=== PATIENT | male | born 1955 | race Caucasian/White ===

== ENCOUNTER 2022-03-26 10:12 | Outpatient (CLI) | payer OTHER, SELFPAY ==
[2022-03-26 19:10] LABS: Hemoglobin A1C 8.4 % (<5.7)
== END 2022-03-26 10:13 | disposition home or self-care (01) ==
LOC: ANHGOSHLAB 10:14
PROVIDERS: PCP Family Medicine; Visit Provider Family Medicine
DX: E11.9 Type 2 diabetes mellitus without complications (principal)
CPT/HCPCS: 36415; 83036

== ENCOUNTER → 2022-03-26 10:26 | Outpatient (CLI) | payer OTHER, SELFPAY ==
--- NOTE | ~2022-03-26 | XR_ITS ---
EXAMINATION: XR knee LT min 4V DATE: 03/26/2022 10:44 INDICATION: Left knee pain TECHNIQUE: Five views of the left knee were obtained. COMPARISON: None. FINDINGS: Alignment is normal. No fracture or osteochondral lesion. There is tricompartmental osteoar thritis, severe in the medial and patellofemoral compartments. No joint effusion/synovitis. Soft tis sues are unremarkable. IMPRESSION: 1. Tricompartmental osteoarthritis. Reviewed, dictated and finalized at location A.
== END ==
PROVIDERS: PCP Family Medicine; Visit Provider Family Medicine
DX: M17.12 Unilateral primary osteoarthritis, left knee (principal)
CPT/HCPCS: 73564

== ENCOUNTER 2022-08-18 07:59 | Outpatient (CLI) | payer OTHER, SELFPAY ==
[2022-08-18 18:34] LABS: Alanine Aminotransferase 35 U/L (6-50); Albumin Level 3.9 g/dL (3.5-5.1); Alkaline Phosphatase 79 U/L (38-126); Anion Gap 7 mmol/L (8-16); Aspartate Amino Transferase 44 U/L (17-59); Bilirubin,Total 0.5 mg/dL (0.2-1.3); Blood Urea Nitrogen 15 mg/dL (9-20); Calcium 7.8 mg/dL (8.4-10.2); Carbon Dioxide 27 mmol/L (22-30); Chloride 105 mmol/L (98-107); Cholesterol 88 mg/dL (0-200); Estimated Glomerular Filt Rate > 60; Glucose 56 mg/dL (65-110); HDL Direct 40 mg/dL; Sodium 139 mmol/L (137-145); Triglycerides 102 mg/dL (<150)
[2022-08-18 18:40] LABS: Prostate Specific Antigen 0.3 ng/mL (< OR = 4.0)
[2022-08-18 19:35] LABS: Creatinine Urine 108.8 mg/dL
[2022-08-18 19:41] LABS: MALB Creatinine Ratio 7.6 mg/g (0-30); Microalbumin Urine Random 8.3 mg/L (0-16.7)
[2022-08-18 20:06] LABS: LDL Cholesterol Direct < 30 mg/dL
[2022-08-18 20:13] LABS: Hemoglobin A1C 6.4 % (<5.7)
== END 2022-08-18 08:00 | disposition home or self-care (01) ==
LOC: ANHGOSHLAB 08:01
PROVIDERS: PCP Family Medicine; Visit Provider Nurse Practitioner
DX: E78.5 Hyperlipidemia, unspecified (principal); Z12.5 Encounter for screening for malignant neoplasm of prostate; E11.9 Type 2 diabetes mellitus without complications; Z79.4 Long term (current) use of insulin
CPT/HCPCS: 36415; 80053; 80061; 82043; 83036; 84153; G0103

== ENCOUNTER 2022-11-03 08:06 | Outpatient (CLI) | payer OTHER, SELFPAY ==
[2022-11-03 19:28] LABS: Hemoglobin A1C 6.1 % (<5.7)
[2022-11-03 20:06] LABS: Alanine Aminotransferase 34 U/L (6-50); Albumin Level 3.7 g/dL (3.5-5.1); Alkaline Phosphatase 79 U/L (38-126); Anion Gap 6 mmol/L (8-16); Aspartate Amino Transferase 37 U/L (17-59); Bilirubin,Total 0.4 mg/dL (0.2-1.3); Blood Urea Nitrogen 13 mg/dL (9-20); Calcium 8.1 mg/dL (8.4-10.2); Carbon Dioxide 25 mmol/L (22-30); Chloride 105 mmol/L (98-107); Cholesterol 87 mg/dL (0-200); Estimated Glomerular Filt Rate > 60; Glucose 96 mg/dL (65-110); HDL Direct 35 mg/dL; Potassium 4.2 mmol/L (3.4-5.0); Sodium 136 mmol/L (137-145); Triglycerides 107 mg/dL (<150)
[2022-11-03 20:17] LABS: LDL Cholesterol Direct 33 mg/dL
== END 2022-11-03 08:07 | disposition home or self-care (01) ==
LOC: ANHGOSHLAB 08:08
PROVIDERS: PCP Family Medicine; Visit Provider Nurse Practitioner
DX: E11.9 Type 2 diabetes mellitus without complications (principal); Z79.4 Long term (current) use of insulin; E78.5 Hyperlipidemia, unspecified
CPT/HCPCS: 36415; 80053; 80061; 83036

== ENCOUNTER 2023-02-11 02:39 | Day surgery (SDC) | payer OTHER, SELFPAY ==
[2023-02-02 08:45] VITALS: BMI 46.9
--- NOTE | 2023-02-02 09:16 | PC.NURSE ---
pt scheduled for colonoscopy february 11, 2023. he takes semaglutide, instructed pt to hold his next dose scheduled for february 06. pt voiced understanding.
[2023-02-11 06:41] VITALS: BP 149/70; PULSE 72; RESP 18; TEMP 35.9; O2SAT 99
[2023-02-11 06:41] LABS: Glucose Point of Care 74 mg/dl (65-105)
[2023-02-11] MEDS: LACTATED RINGERS 1,000 ML 150 ML IV CONT (06:57)
--- NOTE | 2023-02-11 07:32 | WPDANESEPPF ---
Anes - Initial Pre Proc Eval Procedure: Operation Date: 02/11/23 08:00 Proposed Procedures p Colonoscopy - Cheko Martin MD Date/Time: 02/11/23 07:32 Surgeon: Cheko Martin MD Pre Op Diagnosis: hx of colon polyps Patient Data Age: 67 Gender: M Height: 1.91 m Weight: 163.6 kg Last Vital Signs Temp 96.7 F L 02/11/23 06:41 Pulse 72 02/11/23 06:41 Resp 18 02/11/23 06:41 BP 149/70 H 02/11/23 06:41 Pulse Ox 99 02/11/23 06:41 O2 Del Method Room Air 02/11/23 06:41 Allergies Allergy/AdvReac Type Severity Reaction Status Date / Time No Known Allergies Allergy Verified 02/11/23 06:40 Home Medications Medication Instructions Recorded Confirmed Type aspirin 325 mg tablet 325 mg PO DAILY 11/11/20 02/02/23 History pen needle, diabetic 29 gauge x #500 ea 03/26/22 12/06/22 Rx 1/2 (BD Ultra-Fine Original Pen Needle) insulin lispro 100 unit/mL 40 unit (0.4 mL) subcut TID #105 04/08/22 02/02/23 Rx subcutaneous pen (Humalog KwikPen syringes (U-100) Insulin) insulin glargine 100 unit/mL (3 60 unit (0.6 mL) subcut BID #35 08/31/22 02/02/23 Rx mL) subcutaneous pen (Lantus syringes Solostar U-100 Insulin) semaglutide 1 mg/dose (4 mg/3 mL) 1 mg (0.75 mL) subcut WEEKLY 90 11/29/22 02/02/23 Rx subcutaneous pen injector days #9.75 mL atorvastatin 80 mg tablet 80 mg PO DAILY #90 tabs 12/06/22 02/02/23 Rx empagliflozin 25 mg tablet 25 mg PO DAILY #90 tabs 12/06/22 02/02/23 Rx lisinopril 40 mg tablet 40 mg PO DAILY #90 tabs 12/06/22 02/02/23 Rx metformin 1,000 mg tablet 1,000 mg PO BID #180 tabs 12/06/22 02/02/23 Rx metoprolol succinate 100 mg 100 mg PO DAILY #90 tabs 12/06/22 02/11/23 Rx tablet,extended release 24 hr pioglitazone 15 mg tablet 15 mg PO DAILY #90 tabs 12/06/22 02/02/23 Rx sodium,potassium,mag sulfates 17.5 See Rx Instructions PO .COMPLEX 01/10/23 Rx gram-3.13 gram-1.6 gram oral soln #354 mL (Suprep Bowel Prep Kit) Laboratory Tests 02/11/23 06:38 POC Capillary Glucose 74 mg/dl (65-105) Patient hx anesthesia problems: none Family hx anesthesia problems: none Results Review: All pre-operative results and documents have been reviewed as part of the pre-operative evaluation. [facility] Past Medical History Medical History Type 2 diabetes mellitus Family History Family History Father Diabetes mellitus Hypertension Alzheimer disease Mother Hypertension Social History Social History Smoking status: Never smoker Alcohol intake: current Alcohol use details: occasionally Substance use: never Substance use type: does not use Lack of Transportation: No Lack of Food: Never True Current Housing: I Have Housing Concerned About Future Housing: No Difficulty Paying Gas/Electric Bills: No Difficulty Paying for Meds: No Currently Unemployed: No Education: Decline to Answer Difficulty w/ Childcare or Family Care: No Living arrangements: with family Occupation/Education: occupation Additional occupation/education comments: Freight Conductor at [employer] Gender identity (if verbalized by the patient): Male Sexual Orientation (if Verbalized by the Patient): Straight or Heterosexual Spiritual care concerns: No Anes - Eval Final PreProcedure Day of Procedure 02/11/23 07:32 Patient weight: morbidly obese Heart: regular rate and rhythm Lungs: clear to auscultation Airway: Mallampati scale Neurological: alert and oriented Last oral intake: >/= 8 hours ASA classification: III Emergent: no Anesthetic plan: proceed Anesthesia type and monitoring: general GIVS and standard monitoring Results Review: All pre-operative results and documents have been reviewed as part of the pre-operative evaluation. Informed Consent: The patient's anestheti
--- NOTE | 2023-02-11 08:00 | PM.HPGS ---
History of Present Illness History of Present Illness Consent: Risks, benefits, and alternatives have been discussed and questions answered. Patient agrees to proceed with procedure. Chief complaint: hx of colon polyps Narrative: Shady Cerna is a 67 year old male Presents for screening colonoscopy. Patient's current weight appetite and bowel movements are normal. Patient denies abdominal pain. He has had no bleeding. Patient has had 2 previous colonoscopies. Colon polyps were identified in [place]. Patient presents today for screening exam. Past medical history is significant for diabetes, hypertension and obesity. Family history is noncontributory. Review of Systems Review of Systems: Review of systems noncontributory. [facility] Past Medical History Medical History Type 2 diabetes mellitus Family History Family History Father Diabetes mellitus Hypertension Alzheimer disease Mother Hypertension Social History Social History Smoking status: Never smoker Alcohol intake: current Alcohol use details: occasionally Substance use: never Substance use type: does not use Lack of Transportation: No Lack of Food: Never True Current Housing: I Have Housing Concerned About Future Housing: No Difficulty Paying Gas/Electric Bills: No Difficulty Paying for Meds: No Currently Unemployed: No Education: Decline to Answer Difficulty w/ Childcare or Family Care: No Living arrangements: with family Occupation/Education: occupation Additional occupation/education comments: Chicken Cutter at [employer] Gender identity (if verbalized by the patient): Male Sexual Orientation (if Verbalized by the Patient): Straight or Heterosexual Spiritual care concerns: No Meds Home Medications and Allergies Home Medications Medication Instructions Recorded Confirmed Type aspirin 325 mg tablet 325 mg PO DAILY 11/11/20 02/02/23 History pen needle, diabetic 29 gauge x #500 ea 03/26/22 12/06/22 Rx 1/2 (BD Ultra-Fine Original Pen Needle) insulin lispro 100 unit/mL 40 unit (0.4 mL) subcut TID #105 04/08/22 02/02/23 Rx subcutaneous pen (Humalog KwikPen syringes (U-100) Insulin) insulin glargine 100 unit/mL (3 60 unit (0.6 mL) subcut BID #35 08/31/22 02/02/23 Rx mL) subcutaneous pen (Lantus syringes Solostar U-100 Insulin) semaglutide 1 mg/dose (4 mg/3 mL) 1 mg (0.75 mL) subcut WEEKLY 90 11/29/22 02/02/23 Rx subcutaneous pen injector days #9.75 mL atorvastatin 80 mg tablet 80 mg PO DAILY #90 tabs 12/06/22 02/02/23 Rx empagliflozin 25 mg tablet 25 mg PO DAILY #90 tabs 12/06/22 02/02/23 Rx lisinopril 40 mg tablet 40 mg PO DAILY #90 tabs 12/06/22 02/02/23 Rx metformin 1,000 mg tablet 1,000 mg PO BID #180 tabs 12/06/22 02/02/23 Rx metoprolol succinate 100 mg 100 mg PO DAILY #90 tabs 12/06/22 02/11/23 Rx tablet,extended release 24 hr pioglitazone 15 mg tablet 15 mg PO DAILY #90 tabs 12/06/22 02/02/23 Rx sodium,potassium,mag sulfates 17.5 See Rx Instructions PO .COMPLEX 01/10/23 Rx gram-3.13 gram-1.6 gram oral soln #354 mL (Suprep Bowel Prep Kit) Allergies Allergy/AdvReac Type Severity Reaction Status Date / Time No Known Allergies Allergy Verified 02/11/23 06:40 Vital Signs Vital Signs - 24 hr 02/11/23 06:41 Temperature 96.7 F L Pulse Rate 72 Respiratory Rate 18 Blood Pressure 149/70 H Pulse Oximetry 99 Oxygen Delivery Room Air Exam Narrative: Physical exam reveals patient to be alert. Vital signs stable. HEENT exam is unremarkable. Patient is anicteric. Lungs are clear to auscultation and percussion. Heart is without murmur or extra sounds. Abdomen Is obese. bowel sounds are present soft nontender with no hepatosplenomegaly. Digital external rectal exam is normal.
[2023-02-11 08:35] VITALS: BP 93/57; PULSE 72; RESP 19; O2SAT 97
[2023-02-11 08:45] VITALS: BP 110/66; PULSE 71; RESP 21; O2SAT 100
[2023-02-11 08:55] VITALS: BP 120/73; PULSE 70; RESP 20; O2SAT 100
[2023-02-11 09:01] LABS: Glucose Point of Care 68 mg/dl (65-105)
--- NOTE | 2023-02-11 09:03 | SUR.PHASEII ---
0854-Pt's blood sugar 68. Gave juice and faye crackers.
== END 2023-02-11 09:27 | disposition home or self-care (01) ==
PROVIDERS: PCP Family Medicine; Visit Provider Internal Medicine Gastroenterology
PROC: 0DJD8ZZ Inspection of Lower Intestinal Tract, Via Natural or Artificial Opening Endoscopic (ICD-10-PCS; CPT 45378; principal; 2023-02-11 08:00)
DX: Z12.11 Encounter for screening for malignant neoplasm of colon (principal); D12.2 Benign neoplasm of ascending colon; D12.3 Benign neoplasm of transverse colon; D12.5 Benign neoplasm of sigmoid colon; K57.30 Diverticulosis of large intestine without perforation or abscess without bleeding; E11.9 Type 2 diabetes mellitus without complications; I10 Essential (primary) hypertension; Z79.84 Long term (current) use of oral hypoglycemic drugs; Z79.4 Long term (current) use of insulin; Z79.82 Long term (current) use of aspirin; E66.01 Morbid (severe) obesity due to excess calories; Z68.42 Body mass index [BMI] 45.0-49.9, adult
CPT/HCPCS: 45385; 82948; 88305; J0461; J2704; J7120

== ENCOUNTER 2023-11-07 08:52 | Outpatient (CLI) | payer OTHER, SELFPAY ==
--- NOTE | ~2023-11-07 | NM_ITS ---
EXAMINATION: NM josue stress w perfusion DATE: 11/07/2023 12:38 INDICATION: Coronary atherosclerosis. Other forms of dyspnea. TECHNIQUE: Rest images were obtained following intravenous administration of 9.5 mCi Tc99m tetrofosmi n (Myoview). The patient was infused intravenously with Lexiscan (regadenoson). Then, 29.7 mCi Tc99m tetrofosmin (Myoview) was administered intravenously, and supine and prone stress images were obtaine d. Data was reconstructed into short axis and horizontal and vertical long axis SPECT images. Gated S PECT images were also obtained. COMPARISON: None. FINDINGS: There is no definite reversible or fixed perfusion abnormality to suggest ischemia or infar ction. There is no segmental wall motion abnormality. Left ventricular ejection fraction measures 7 0%. IMPRESSION: 1. No definite ischemia or infarct. 2. Normal left ventricular ejection fraction measuring 70%. Reviewed, dictated and finalized at location A.
--- NOTE | 2023-11-07 09:08 | EST_ITS ---
Patient Info Name: Shady Cerna Age: 68 years : 1955 Gender: Male Ht: 75 in Wt: 350 lbs BSA: 2.97 m2 HR: 62 bpm BP: 123 / 63 mmHg Heart Rhythm: Sinus Rhythm Exam Date: 11/07/2023 10:41 AM Exam Location: [facility] Patient Status: Outpatient Admit Date: 11/07/2023 Staff Ordering Physician: Jorge Covarrubias DO Attending Provider: Jorge Covarrubias DO Exercise Technologist: Lorraine Florence CT Exercise Physician: Anthony Gutiérrez DO Exam Type: CA stress josue w NM Study Info Indications R06.09 - Other forms of dyspnea A regadenoson stress test was performed. Summary 1. 1. Negative lexiscan stress test for ischemic ST changes by ECG criteria. 2. 2. Stable hemodynamics throughout the test. 3. 3. Nuclear scan to follow and will be reported separately. Please correlate with it. 4. 4. Patient informed of the above results. Protocol: Lexiscan Stress ECG Details Stage: REST Duration (min): 1 min : 10 sec HR (bpm): 63 SBP (mmHg): --- DBP (mmHg): --- Stage: REST Duration (min): 11 min : 32 sec HR (bpm): 64 SBP (mmHg): --- DBP (mmHg): --- Stage: STAGE 1 Duration (min): 0 min : 59 sec HR (bpm): 72 SBP (mmHg): 131 DBP (mmHg): 70 Stage: RECOVERY Duration (min): 1 min : 0 sec HR (bpm): 76 SBP (mmHg): 131 DBP (mmHg): 70 Stage: RECOVERY Duration (min): 2 min : 0 sec HR (bpm): 72 SBP (mmHg): 131 DBP (mmHg): 70 Stage: RECOVERY Duration (min): 3 min : 0 sec HR (bpm): 71 SBP (mmHg): 131 DBP (mmHg): 70 Stage: RECOVERY Duration (min): 3 min : 40 sec HR (bpm): 72 SBP (mmHg): 132 DBP (mmHg): 55 Rest HR: 64 bpm Peak HR: 76 bpm Rest Sys BP: 123 mmHg Peak Sys BP: 132 mmHg Max Pred HR: 152 bpm % Max Pred HR: 50 % Target HR: 129 bpm Max RPP: 10,032 bpm*mmHg Termination Reason: Completed protocol Cardiac Symptoms: Shortness of breath, Chest discomfort Total Time: 1 min : 0 sec [place] BP: 60 mmHg [place] BP: 55 mmHg Total Dose: 0.4 mg Resting ECG Sinus rhythm. Stress ECG No ST changes. Arrhythmias None. Report Signatures
== END 2023-11-07 08:53 | disposition home or self-care (01) ==
PROVIDERS: PCP Family Medicine; Visit Provider Family Medicine
DX: R06.09 Other forms of dyspnea (principal); I25.10 Atherosclerotic heart disease of native coronary artery without angina pectoris
CPT/HCPCS: 78452; 93017; A9502; J2785

== ENCOUNTER 2024-04-20 07:59 | Outpatient (CLI) | payer OTHER, SELFPAY ==
[2024-05-16 12:09] VITALS: BMI 45.0
--- NOTE | 2024-05-16 12:09 | WPDSLEEPSTUD ---
Sleep Study Date of Study: 04/20/24 Ordering Provider: Jorge Covarrubias DO Interpreting Physician: Beth Mckeon DO Sleep Study Type: Split Polysomnogram Height: 1.91 m Weight: 163.293 kg Body Mass Index: 45.0 Neck Circumference (inches): 23 [place]: 2 Reason for Sleep Study The patient was diagnosed with sleep apnea 17 years ago. His current machine is 14 years old. Needs new equipment Sleep History The patient is a 69-year-old male that had a sleep study ordered by his primary care physician to get a new CPAP machine. The patient denies awakening from sleep short of breath. He denies awakening at night with heartburn, belching or cough. He constantly snores loudly enough others complain. He occasionally has trouble sleeping when he has a cold. He denies waking up gasping for air throughout the night. He constantly has breathing problems at night observed by himself or others. He denies sweating excessively at night. He denies having heart palpitations or irregular heartbeats during the night. He frequently falls asleep during the day and frequently falls asleep while driving. He denies sleep paralysis and cataplexy. He rarely experiences vivid dreamlike scenes upon awakening or falling asleep. He denies feeling afraid of going to sleep. He denies having nightmares. He occasionally remembers his dreams. He occasionally has thoughts racing through his mind. He denies feeling sad, depressed or anxious. He rarely has muscular tension. He rarely notices parts of his body jerk. He rarely kicks during the night. He rarely has crawling and aching feelings in his legs and rarely has leg pain during. He rarely grinds his teeth during sleep and never awakens with morning jaw pain. He denies being bothered by pain during the day and is rarely awakened by pain during the night. He rarely wakes up feeling stiff in the morning. He occasionally wakes up with sore or achy muscles. He rarely wakes up with pain in the neck, spine or other joints. The patient goes to bed at 11:00 p.m. on both weekdays and weekends. It takes him 1 hour to fall asleep. He wakes up 2-3 times throughout the night to urinate and it takes 30 minutes to fall back asleep. He wakes up at 7:00 a.m. on weekdays and 8:00 a.m. on weekends. He typically gets 7 hours of sleep per night. He will stay in bed for 15 minutes after waking up in morning. He currently lives with his . He denies consuming caffeinated beverages within 2 hours of bedtime. He denies engaging in physical exercise before bedtime. He will watch television before falling asleep. He denies taking naps in afternoon or the evening. He consumes 36 oz of caffeinated soda per day. He denies tobacco, alcohol and recreational drug use. [facility] Past Medical History Medical History Type 2 diabetes mellitus Family History Family History Father Diabetes mellitus Hypertension Alzheimer disease Mother Hypertension Social History Social History Smoking status: Never smoker Alcohol intake: current Alcohol use details: occasionally Substance use: never Substance use type: does not use Lack of Transportation: No Lack of Food: Never True Current Housing: I Have Housing Concerned About Future Housing: No Difficulty Paying Gas/Electric Bills: No Difficulty Paying for Meds: No Currently Unemployed: No Education: Decline to Answer Difficulty w/ Childcare or Family Care: No Living arrangements: with family Occupation/Education: occupation Additional occupation/education comments: [employer] at [employer] Gender identity (if verbalized by the patient): Male Sexual Orientation (if Verbalized by the Patient): Straight or Heterosexual Spiritual care concerns: No Medications Home
== END 2024-04-21 07:46 | disposition home or self-care (01) ==
PROVIDERS: PCP Family Medicine; Visit Provider Family Medicine
DX: G47.33 Obstructive sleep apnea (adult) (pediatric) (principal)
CPT/HCPCS: 95811